=== PATIENT | female | born 1995 | race African-American/Black ===

== ENCOUNTER 2022-03-14 19:28 | Emergency (ER) | payer OTHER ==
[~2022-03-14] VITALS: Ht 165.1 cm; Wt 83.9 kg
[2022-03-14] MEDS ORDERED: LEVSIN/SL0.125 MG SL (23:37)
[2022-03-14] MEDS ORDERED: PEPCID AC20 MG PO (23:37)
[2022-03-14] MEDS ORDERED: ZOFRAN8 MG PO (23:37)
== END 2022-03-14 23:48 | disposition home or self-care (01) ==
LOC: ER 19:28
DX: K29.70 Gastritis, unspecified, without bleeding (principal); I88.0 Nonspecific mesenteric lymphadenitis; Z88.6 Allergy status to analgesic agent